=== PATIENT | female | born 1955 | race Caucasian/White ===

== ENCOUNTER → 2020-11-23 | Outpatient (REF) | payer OTHER ==
[~2020-11-23] MED LIST: APAP/HYDRO325 MG/10 PO; ATENOLOL50 MG PO; ATORVASTATIN CA40 MG PO; BACTRIM DS1 TAB OR; BC HEADACH1 PO; BIOTIN1000 MCG PO; CARISOPRODOL350 MG PO; CELEBREX200 M1 PO; CYMBALTA30 MG PO; FAMOTIDINE20 M1 PO; FLEXERIL PO; FLEXERIL5 M1 PO; HYDROCODONE/ACE1 TA1 PO; KEFLEX500 M1 PO; LORTAB 1010 MG PO; MAGNESIUM-OX400 MG PO; NAPROSYN500 MG PO; ONDANSETRON4 MG PO; PERCOCET1 TA4 PO; PRILOSEC20 MG PO; SOLU-MEDROL125 MG IM; SUPER B COM2 PO; TENORMIN PO; TENORMIN25 MG OR; TRAMADOL HCL50 MG PO; TROKENDI XR25 MG PO; ULTRAM50 M1 PO; ULTRAM50 MG OR; ULTRAM50 MG PO
== END | disposition home or self-care (01) ==
LOC: DI 11:16
PROVIDERS: ATTEND Nurse Practitioner
DX: K57.92 Diverticulitis of intestine, part unspecified, without perforation or abscess without bleeding (principal)

== ENCOUNTER 2021-09-16 13:27 | Emergency (ER) | payer MEDICARE, OTHER ==
[~2021-09-16] VITALS: Ht 170.2 cm; Wt 75.0 kg
[2021-09-16] VITALS (8 sets, daily range): BP systolic 131–144; BP diastolic 64–75
[2021-09-16] MEDS ORDERED: HYDROCO/APAP1 TA9 PO (16:01)
== END 2021-09-16 16:30 | disposition home or self-care (01) ==
LOC: ED 13:27
DX: M25.562 Pain in left knee (principal); I71.4 Abdominal aortic aneurysm, without rupture; W01.0XXA Fall on same level from slipping, tripping and stumbling without subsequent striking against object, initial encounter
CPT/HCPCS: L1830

== ENCOUNTER 2024-06-07 17:52 | Emergency (ER) | payer MEDICARE, MEDICAID ==
[~2024-06-07] VITALS: Ht 170.2 cm; Wt 75.0 kg
[~2024-06-07 17:52] MED LIST changes: +HYDROCO/APAP1 TA9 PO; +MECLIZINE25 MG PO; +NORVASC PO
[2024-06-07 18:34] VITALS: BP 165/89
[2024-06-07 18:45] VITALS: BP 176/109
[2024-06-07] MEDS ORDERED: FLUORESCEIN SODIUM 1 MG EA OD ONE (18:55)
[2024-06-07] MEDS ORDERED: TETRACAINE HCL 0.5 %/4 ML SOL OD ONE (18:55)
[2024-06-07] MEDS ORDERED: Diph, Acellular Pertussis, Tet 0.5 ML/VIAL (Tdap) SDV IM ONE (18:55)
[2024-06-07] MEDS ORDERED: ERYTHROMYCIN OPTHALMIC 5 MG/GM TUBE OD ONE (19:50)
[2024-06-07] MEDS ORDERED: MAXITROL0.11 OD (19:57)
[2024-06-07 20:09] VITALS: BP 136/79
== END 2024-06-07 20:09 | disposition home or self-care (01) ==
LOC: ED 17:52
PROC: 0HQ1XZZ Repair Face Skin, External Approach (ICD-10-PCS; principal; 2024-06-07)
DX: S05.01XA Injury of conjunctiva and corneal abrasion without foreign body, right eye, initial encounter (principal); S01.111A Laceration without foreign body of right eyelid and periocular area, initial encounter; I10 Essential (primary) hypertension; I71.40 Abdominal aortic aneurysm, without rupture, unspecified; W22.09XA Striking against other stationary object, initial encounter; Y92.72 Chicken coop as the place of occurrence of the external cause
CPT/HCPCS: 90715